=== PATIENT | male | born 1965 | race Two or more races ===

== ENCOUNTER 2022-07-14 18:21 | Emergency (ER) | payer OTHER ==
[~2022-07-14] VITALS: Ht 180.3 cm; Wt 113.6 kg
[2022-07-14 18:24] VITALS: BP 121/71
[2022-07-14] MEDS ORDERED: METF-1211 PO (18:26)
[2022-07-14] MEDS ORDERED: CYCL-448 PO (18:44)
[2022-07-14] MEDS ORDERED: IBUP-1492 PO (18:44)
== END 2022-07-14 19:14 | disposition home or self-care (01) ==
LOC: EMS 18:22
DX: M54.16 Radiculopathy, lumbar region (principal); E11.9 Type 2 diabetes mellitus without complications; Z98.890 Other specified postprocedural states
CPT/HCPCS: 82962; 99283